=== PATIENT | male | born 1935 | race Caucasian/White ===

== ENCOUNTER 2020-03-30 04:10 | Inpatient (IN) | payer OTHER, MEDICARE, SELFPAY ==
[~2020-03-30] VITALS: Ht 185.4 cm; Wt 88.5 kg
[2020-03-30 04:10] VITALS: BP_SYST 96
[~2020-03-30 04:10] MED LIST: LIP20 PO; TAMS-11 PO
--- NOTE | 2020-03-30 04:10 | NUR ---
ER Dr. ROMERO at bedside examining patient.
--- NOTE | 2020-03-30 04:10 | NUR ---
Placed in room 1 . Placed on stucco laborer, blood pressure machine and pulse oximeter. To gown for exam. Side rails up. Report given to ESVIN DUKES
--- NOTE | 2020-03-30 04:10 | NUR ---
Received patient via EMS ambulance w/ c/o sob and noted to have hr of SVT vs Afib w/ RVR. Denies any cp is slightly pale (skin) in color. MD Fernandez at bedside, iv h.l to be placed to administer medications continue.
--- NOTE | 2020-03-30 04:15 | NUR ---
# 18 gauge angiocath placed to RAC. Use of asceptic technique. Opsite placed over site. Blood return noted. Blood, BLOOD CULTURES, LACTIC for lab drawn from site. Flushed with 10 cc of normal saline. No evidence of infiltration noted. Patient tolerated well.
[2020-03-30] MEDS ORDERED: MIDAZOLAM HCL 5 MG/5 ML VIAL ONE (04:25)
[2020-03-30] MEDS ORDERED: ADENOSINE 6MG/2ML VIAL ONE ×2 (04:25→04:30)
--- NOTE | 2020-03-30 04:25 | NUR ---
1st Adenosine 6mg administered but with no success, patient still remains at SVT vs Afib w/ RVR. Patient is resting comfortably at this time will admin 2nd dose of Adenosine but 12 mg ivp.
--- NOTE | 2020-03-30 04:30 | NUR ---
2nd dose of Adenosine 12mg ivp unsuccessful attempt in converting patient into a regular rhythm. Per Janoo patient to be cardioverted starting at 50 joules. Positioned patient for comfort, continue to monitor level of comfort.
--- NOTE | 2020-03-30 04:31 | NUR ---
patient cardioverted w/ 50 joules, no success in coverting to sinus rhythm or slower rate. Patient tolerated shock. Positioned for comfort and safety w/ bed to low positon sr up.
--- NOTE | 2020-03-30 04:33 | NUR ---
2nd shock performed at 100 joules w/ same results no conversion. continue to monitor.
--- NOTE | 2020-03-30 04:35 | NUR ---
3rd shock performed at 200 joules unsuccessful. Per MD Fernandez will attempt 4th shock after being medicated with versed. continue to monitor level of comfort.
--- NOTE | 2020-03-30 04:45 | NUR ---
# 20 gauge angiocath placed to LEFT HAND. Use of asceptic technique. Opsite placed over site. Blood return noted. Flushed with 10 cc of normal saline. No evidence of infiltration noted. Patient tolerated well.
--- NOTE | 2020-03-30 04:48 | NUR ---
4th shock, sync'd at 100 joules, unsuccessful. Will administered 2nd dose of 12 mg Adenosine.
--- NOTE | 2020-03-30 04:51 | NUR ---
2nd dose of adenosine 12 mg ivp. Will observe for any adverse reaction. continue to monitor.
[2020-03-30] MEDS ORDERED: AMIODARONE HCL 150 MG/3ML VIAL ONE (04:54)
--- NOTE | 2020-03-30 05:05 | NUR ---
amiodarone 300mg IV drip over 10 minutes initiated via RAC per MD order.
[2020-03-30 05:07] LABS: MEAN CORPUSCULAR HEMOGLOBIN 35 pg (27-31); WHITE BLOOD COUNT (AUTO) 3.5 K/uL (4.8-10.8)
--- NOTE | 2020-03-30 05:09 | NUR ---
respiratory at bedside for ABG.
[2020-03-30 05:12] LABS: MEAN CORPUSCULAR HGB CONC 32 % (32-36); MEAN CORPUSCULAR VOLUME 110 fL (79.0-98.0); PLATELET COUNT (AUTO) 108 K/uL (130-430); RED BLOOD CELL COUNT(AUTO) 2.15 MIL/uL (4.2-6.2); RED CELL DISTRIBUTION WIDTH 26.4 % (9.0-15.0)
[2020-03-30 05:18] LABS: ANION GAP 11 (5-15); CALCIUM 7.7 mg/dL (8.4-11.0); CHLORIDE 100 mmol/L (98-107); CREATININE 1.05 mg/dL (0.55-1.30); GLUCOSE 149 mg/dL (70-99); POTASSIUM 4.3 mmol/L (3.5-5.1); SODIUM SERUM 132 mmol/L (136-145); UREA NITROGEN, BLOOD 19 mg/dL (8-21)
[2020-03-30 05:20] LABS: C-REACTIVE PROTEIN QUANT 0.5 mg/dL (0-0.5); HEMATOCRIT 23.7 % (36-54); HEMOGLOBIN 7.6 g/dL (14.0-18.0)
[2020-03-30] MEDS ORDERED: AMIODARONE HCL 450 MG/9 ML VIAL IV ONE ×2 (05:29→22:47)
[2020-03-30] MEDS ORDERED: AMIODARONE HCL 450 MG in D5W 241 ML IV ONE (05:30)
[2020-03-30 05:32] LABS: ALANINE AMINOTRANSFERASE 57 U/L (12-78); ALBUMIN 2.5 g/dL (3.4-4.8); ASPARTATE AMINOTRANSFERASE 94 U/L (10-37); FREE T4 (FREE THYROXINE) 1.1 ng/dl (0.8-1.5); LACTATE DEHYDROGENASE 696 U/L (85-227); TOTAL BILIRUBIN 1.9 mg/dL (0.0-1.0)
[2020-03-30 05:33] LABS: ALCOHOL, BLOOD < 3 mg/dL (<10)
--- NOTE | 2020-03-30 05:37 | NUR ---
RADIOLOGY AT BEDSIDE FOR CHEST XRAY.
[2020-03-30 05:44] LABS: PROTHROMBIN TIME 10.4 SECS (9.5-12.5)
[2020-03-30 05:55] LABS: BAND % (MANUAL) 6 % (0-6); BASOPHILS % (MANUAL) 0 % (0-2); CORRECTED WHITE BLOOD COUNT 2.7 K/uL (4.5-11.0); EOSINOPHILS % (MANUAL) 1 % (0-7); LYMPHOCYTES % (MANUAL) 27 % (20-46); METAMYELOCYTES % 8 % (0-0); MONOCYTES % (MANUAL) 12 % (0-11); MYELOCYTES % 2 % (0-0)
--- NOTE | 2020-03-30 06:03 | NUR ---
DR. ROMERO SPEAKING ON THE PHONE WITH DR. KRAMER.
--- NOTE | 2020-03-30 06:07 | NUR ---
lab at bedside drawing blood.
[2020-03-30] MEDS ORDERED: NACL 0.9% 1,000 ML IV ONE (06:15)
[2020-03-30] MEDS ORDERED: PIPERACILLIN/TAZO 3.375 GM in NS 50 ML IV ONE (06:15)
[2020-03-30] MEDS ORDERED: DILTIAZEM HCL 25 MG/5 ML VIAL IVP ONE (06:15)
[2020-03-30] MEDS ORDERED: VANCOMYCIN HCL 1,000 MG in NS 250 ML IV ONE (06:15)
[2020-03-30] MEDS ORDERED: DILTIAZEM HCL 25 MG/5 ML VIAL ONE (06:16)
[2020-03-30] MEDS ORDERED: DILTIAZEM HCL 125 MG/25 ML VIAL IV ONE (06:16)
--- NOTE | 2020-03-30 06:30 | NUR ---
Patient started on Cardizem gtt at 10ml/hr after being bolused w/ 15mg ivp. patient hr noted to decrease to 113. Positioned patient for comfort and safety w/ bed to low position sr up, iv sites patent and intact. Continue to monitor.
--- NOTE | 2020-03-30 07:06 | NUR ---
Report received from ESVIN Hurtado for continuation of care.
--- NOTE | 2020-03-30 07:09 | NUR ---
Patient is awake, alert, and oriented x4. Patient has no complaints at this time. He is connected to the monitor with a rapid heart rate. Cardizem is running at 10mg/hr to left hand, Amiodorone is running at 33.34 ml/hr to right AC. Patient is on oximizer @ 10LPM.
--- NOTE | 2020-03-30 08:25 | NUR ---
# 16 FR Rizo catheter with use of sterile technique. Immediate return of 250 cc frank urine noted. Bedside drainage bag placed below level of bladder. Urine sample collected and sent to lab. Pt tolerated procedure well.
[2020-03-30] MEDS ORDERED: ALLO300T2 PO (09:18)
[2020-03-30] MEDS ORDERED: ESOM20CA PO (09:18)
--- NOTE | 2020-03-30 09:20 | NUR ---
Medication reconciliation completed with information provided by patient. Any prior medication reconciliation on file was reviewed and corrected.
--- NOTE | 2020-03-30 09:20 | NUR ---
US tech at bedside.
--- NOTE | 2020-03-30 09:25 | NUR ---
Yard Inspector, Dr. Huertas at bedside to see patient.
[2020-03-30] MEDS ORDERED: IOHEXOL 350 mgI/mL, 150 ML INFUS..BTL IV ONE (09:33)
[2020-03-30 09:58] LABS: BILIRUBIN,URINE 1+ (NEGATIVE); CLARITY/URINE CLEAR (CLEAR); COLOR,URINE ORANGE (YELLOW); GLUCOSE,URINE NEGATIVE (NEGATIVE); KETONES,URINE NEGATIVE (NEGATIVE); LEUKOCYTE ESTERASE ,URINE NEGATIVE (NEGATIVE); NITRITE, URINE NEGATIVE (NEGATIVE); PROTEIN URINE 1+ (NEGATIVE)
[2020-03-30 10:14] LABS: BLOOD, URINE TRACE (NEGATIVE)
[2020-03-30 10:15] LABS: BACTERIA,URINE None Seen /HPF (None Seen); CALCIUM OXALATE CRYSTALS,UR None Seen /HPF (None Seen); CALCIUM PHOSPHATE CRYSTALS,UR None Seen /HPF (None Seen); TRICHOMONAS,URINE None Seen /HPF (None Seen); WBC,URINE NONE SEEN /HPF (0-3); YEAST,URINE None Seen /HPF (None Seen)
[2020-03-30 10:32] LABS: BARBITURATE, URINE NEGATIVE (NEG <=200); BENZODIAZEPINE, URINE NEGATIVE (NEG <=150); CANNABINOID, URINE NEGATIVE (NEG <=50); COCAINE, URINE NEGATIVE (NEG <=150); METHAMPHETAMINES SCREEN,URINE NEGATIVE (NEG <=500); OPIATE, URINE POSITIVE (NEG <=100); PHENCYCLIDINE SCREEN,URINE NEGATIVE (NEG <=25); UR TRICYCLIC ANTIDEPRESSANTS NEGATIVE (NEG <=300); URINE AMPHETAMINE NEGATIVE (NEG <=500); URINE METHADONE NEGATIVE (NEG <=200); URINE OXYCODONE SCREEN NEGATIVE (NEG <=100); URINE PROPOXYPHENE SCREEN NEGATIVE (NEG <=300)
[2020-03-30] MEDS ORDERED: PANTOPRAZOLE SODIUM 40 MG TAB PO ONE (10:45)
--- NOTE | 2020-03-30 10:55 | NUR ---
SPOKE WITH PTS AND UPDATED HER ON INFORMATION.
--- NOTE | 2020-03-30 11:30 | NUR ---
Amiodarone titrated to 16.7mL/hr.
--- NOTE | 2020-03-30 12:40 | NUR ---
DR LANG AT BEDSIDE FOR EVALUATION
--- NOTE | 2020-03-30 13:20 | NUR ---
Patient placed in hospital bed.
--- NOTE | 2020-03-30 13:25 | NUR ---
Lunch tray provided.
[2020-03-30] MEDS: IPRATROPIUM/ALBUTEROL SULFATE 3 ML AMPUL.NEB (DUONEB) INH SCH ×2 (15:43→20:05)
--- NOTE | 2020-03-30 17:00 | NUR ---
Patient was provided dinner tray.
[2020-03-30] MEDS: PIPERACILLIN/TAZO 3.375/DEX-IS 50 ML IV SCH ×2 (17:36→23:36)
--- NOTE | 2020-03-30 17:52 | NUR ---
Spoke with Dr. Seals and updated him on patient. He states he will be in to see him.
--- NOTE | 2020-03-30 19:00 | NUR ---
Cardizem drip stopped.
--- NOTE | 2020-03-30 19:10 | NUR ---
850 of frank urine emptied from paiz catheter.
--- NOTE | 2020-03-30 19:15 | NUR ---
All patient needs endorsed to ESVIN Reis for continuation of care.
--- NOTE | 2020-03-30 19:15 | NUR ---
AMIODARONE: Endorsed to ESVIN Reis to turn off Amiodarone at 0530 per protocol.
[2020-03-30 19:50] VITALS: BP_SYST 135
--- NOTE | 2020-03-30 19:50 | NUR ---
ICU ADMIT Patient is alert and oriented. O2 via oxymizer @10L, RR even and unlabored. SR on monitor. IVF infuisng. Belongings at bedside. Rizo catheter in place and draining to gravity. Safety precautions in place, call light within reach. Will continue to monitor.
[2020-03-30 20:00] VITALS: BP_SYST 135
[2020-03-30] MEDS: MICAFUNGIN SODIUM 100 MG in NS 100 ML IV SCH (20:34)
[2020-03-30 21:00] VITALS: BP_SYST 139
--- NOTE | 2020-03-30 21:55 | NUR ---
Dr. Seals at bedside examining patient.
[2020-03-30 22:00] VITALS: BP_SYST 130
[2020-03-30] MEDS ORDERED: AMIODARONE HCL 450 MG in D5W 241 ML IV SCH (22:15)
[2020-03-30 23:00] VITALS: BP_SYST 113
[2020-03-30] MEDS ORDERED: AMIODARONE HCL 200 MG TABLET ONE (23:33)
[2020-03-30] MEDS: AMIODARONE HCL 200 MG TABLET PO SCH (23:36)
[2020-03-31] VITALS (20 sets, daily range): BP systolic 94–145
[2020-03-31] MEDS: IPRATROPIUM/ALBUTEROL SULFATE 3 ML AMPUL.NEB (DUONEB) INH SCH ×5 (01:36→19:00)
--- NOTE | 2020-03-31 03:06 | NUR ---
PAGED FOR CONSULT DARYN MARQUIS REASON FOR CONSULT: PANCYTOPENIA,MDS,LACTIC ACIDOSIS ORDERING PHYSICIAN: DR. LANG DIALED: [phone] SPOKE TO: KENNETH
[2020-03-31] MEDS: PIPERACILLIN/TAZO 3.375/DEX-IS 50 ML IV SCH ×3 (06:48→17:36)
[2020-03-31 07:18] LABS: ALANINE AMINOTRANSFERASE 50 U/L (12-78); ALBUMIN 2.1 g/dL (3.4-4.8); ANION GAP 7 (5-15); ASPARTATE AMINOTRANSFERASE 96 U/L (10-37); CALCIUM 7.2 mg/dL (8.4-11.0); CHLORIDE 99 mmol/L (98-107); CREATININE 0.95 mg/dL (0.55-1.30); GLUCOSE 99 mg/dL (70-99); SODIUM SERUM 130 mmol/L (136-145); TOTAL BILIRUBIN 1.7 mg/dL (0.0-1.0); UREA NITROGEN, BLOOD 18 mg/dL (8-21)
--- NOTE | 2020-03-31 07:20 | NUR ---
Opening Note Received report from endorsing RN. Pt AAOX4, states no pain or distress at this time on oximizer 10L. IV sites intact, patent, no infiltration noted with TKO fluid. Rizo in place draining yellow urine to gravity. No other complaints at this time.
--- NOTE | 2020-03-31 07:25 | NUR ---
ENDORSEMENT Pt care endorsed to ESVIN kelly using nursing sbar.
[2020-03-31 08:07] LABS: C-REACTIVE PROTEIN QUANT 5.6 mg/dL (0-0.5)
[2020-03-31] MEDS: PANTOPRAZOLE SODIUM 40 MG TAB PO SCH (08:33)
[2020-03-31] MEDS: AMIODARONE HCL 200 MG TABLET PO SCH ×2 (08:34→20:41)
[2020-03-31] MEDS: ATORVASTATIN 20 MG TABLET PO SCH (08:34)
--- NOTE | 2020-03-31 08:53 | NUR ---
Nutrition Update [place] scale 17 noted. Pt admitted for uncontrolled superventricular tachycardia/atrial fibrillation Diet: Clear Liquid Diet BMI: 25.7 kg/m2 RD to follow per nutrition care standards.
[2020-03-31 09:04] LABS: MEAN CORPUSCULAR HEMOGLOBIN 35 pg (27-31); MEAN CORPUSCULAR HGB CONC 32 % (32-36); MEAN CORPUSCULAR VOLUME 107 fL (79.0-98.0); PLATELET COUNT (AUTO) 104 K/uL (130-430); RED BLOOD CELL COUNT(AUTO) 2.02 MIL/uL (4.2-6.2); RED CELL DISTRIBUTION WIDTH 25.3 % (9.0-15.0); WHITE BLOOD COUNT (AUTO) 2.5 K/uL (4.8-10.8)
[2020-03-31 09:12] LABS: HEMATOCRIT 21.6 % (36-54)
[2020-03-31] MEDS: NACL 0.9% 1,000 ML IV SCH (10:25)
[2020-03-31 12:11] LABS: CORRECTED WHITE BLOOD COUNT 2.1 K/uL (4.5-11.0)
[2020-03-31 12:12] LABS: BAND % (MANUAL) 7 % (0-6); BASOPHILS % (MANUAL) 0 % (0-2); EOSINOPHILS % (MANUAL) 0 % (0-7); LYMPHOCYTES % (MANUAL) 40 % (20-46); METAMYELOCYTES % 6 % (0-0); MONOCYTES % (MANUAL) 12 % (0-11); MYELOCYTES % 2 % (0-0)
--- NOTE | 2020-03-31 12:45 | NUR ---
BT INITIATION: Verbal and signed consent from patient agreeing to administration of blood witnessed by second RN. Blood has been type and crossmatched. Blood sent from blood bank. Information on unit of blood checked against patient wristband at bedside by two nurses. All information matches. Patient or responsible green party informed of potential complications associated with blood transfusion. Informed of possible transfusion reaction symptoms. Aware of need to notify nurse at once of itching, shortness of breath, flushing, feeling of impending doom, or other symptoms not previously present. Vital signs taken within 5 minutes prior to initiation of transfusion. RN will remain with patient for first 15 minutes of transfusion at which time vital signs will be re-assessed.
[2020-03-31] MEDS: ACETAMINOPHEN 325 MG TABLET PO PRN ×2 (14:38→20:38)
[2020-03-31] MEDS ORDERED: FUROSEMIDE 20 MG/2 ML VIAL IVP ONE (15:45)
--- NOTE | 2020-03-31 15:50 | NUR ---
Dr. Huertas rounding on pt. New orders made for lasix 20 mg IVP.
--- NOTE | 2020-03-31 16:00 | NUR ---
Blood transfusion complete. Vitals stable, afebrile with T99.1. Pt states no pain or distress at this time.
--- NOTE | 2020-03-31 16:05 | NUR ---
RT NOTES Placed pt on HFNC 50L 100% per Dr Huertas's order. Pt was educated and was encouraged to self-prone, sit-up or lay on his side and avoid being on his back. Pt. verbalized understanding, asked how long he should do that, was told as long as he can tolerate it.
--- NOTE | 2020-03-31 16:22 | NUR ---
Dr. Mcclure at bedside with patient. New orders made and carried out.
--- NOTE | 2020-03-31 16:33 | NUR ---
Dietitian Recommendations *Recommend continue Cardiac Diet *Recommend add Ensure Enlive TID to provide additional 1050 kcal, 60 g protein to promote repletion. Please see Nutrition Assessment for details. MINDI RUFF
[2020-03-31] MEDS ORDERED: FUROSEMIDE 20 MG/2 ML VIAL ONE (16:43)
--- NOTE | 2020-03-31 18:00 | NUR ---
Monitoring pt in telemetry status per MD order.
[2020-03-31] MEDS: MICAFUNGIN SODIUM 100 MG in NS 100 ML IV SCH (18:29)
--- NOTE | 2020-03-31 18:56 | NUR ---
Closing Pt in no signs of acute distress. States no pain at this time. Had 100% of dinner tray. IV sites intact, patent, no infiltration noted with IVF infusing. Will endorse plan of care to RN.
--- NOTE | 2020-03-31 19:25 | NUR ---
Opening note Received report from Shirley MCALLISTER. Pt with telemetry order, on 6L/NC, NAD.
--- NOTE | 2020-03-31 20:00 | NUR ---
RN Rounds Pt with temperature 101.9. NAD. pt medicated. Will continue to monitor
--- NOTE | 2020-03-31 21:00 | NUR ---
MD Rounds Dr. Seals at bedside- updated on patient. No new orders.
--- NOTE | 2020-03-31 22:40 | NUR ---
RN Rounds pt temp rechecked now 102.8. cooling measures initiated with ice pack. will continue to monitor.
[2020-04-01] VITALS: BP_SYST 136
[2020-04-01] MEDS: PIPERACILLIN/TAZO 3.375/DEX-IS 50 ML IV SCH ×4 (00:12→17:39)
[2020-04-01] MEDS: IPRATROPIUM/ALBUTEROL SULFATE 3 ML AMPUL.NEB (DUONEB) INH SCH ×4 (01:12→19:00)
[2020-04-01 04:00] VITALS: BP_SYST 136
[2020-04-01 07:08] LABS: BASOPHILS % (AUTO) 1.1 % (0.0-2.0); EOSINOPHILS % (AUTO) 0.1 % (0.0-4.0); HEMATOCRIT 23.4 % (36-54); HEMOGLOBIN 7.9 g/dL (14.0-18.0); LYMPHOCYTES # (AUTO) 0.9 K/uL (1.0-5.5); MEAN CORPUSCULAR HEMOGLOBIN 35 pg (27-31); MEAN CORPUSCULAR HGB CONC 34 % (32-36); MEAN CORPUSCULAR VOLUME 103 fL (79.0-98.0); MONOCYTES # (AUTO) 0.4 K/uL (0.0-1.0); MONOCYTES % (AUTO) 13.9 % (1.7-9.3); NEUTROPHILS # (AUTO) 1.4 K/uL (1.8-7.7); NEUTROPHILS % (AUTO) 51.9 % (40.0-70.0); PLATELET COUNT (AUTO) 90 K/uL (130-430); RED BLOOD CELL COUNT(AUTO) 2.28 MIL/uL (4.2-6.2); RED CELL DISTRIBUTION WIDTH 24.6 % (9.0-15.0); RETICULOCYTE COUNT 13.2 % (0.5-1.5); WHITE BLOOD COUNT (AUTO) 2.7 K/uL (4.8-10.8)
--- NOTE | 2020-04-01 07:15 | NUR ---
Closing note Report given to Renate MCALLISTER
[2020-04-01 07:34] LABS: ALANINE AMINOTRANSFERASE 66 U/L (12-78); ALBUMIN 1.9 g/dL (3.4-4.8); ANION GAP 9 (5-15); ASPARTATE AMINOTRANSFERASE 109 U/L (10-37); CHLORIDE 97 mmol/L (98-107); CREATININE 1.18 mg/dL (0.55-1.30); GLUCOSE 109 mg/dL (70-99); LACTATE DEHYDROGENASE 644 U/L (85-227); POTASSIUM 4.1 mmol/L (3.5-5.1); SODIUM SERUM 129 mmol/L (136-145); TOTAL BILIRUBIN 1.7 mg/dL (0.0-1.0); UREA NITROGEN, BLOOD 20 mg/dL (8-21)
--- NOTE | 2020-04-01 07:58 | NUR ---
Initial notes Awake, having breathing treatment at this time. denies ay pain or discomfort. no acute distress noted. Informed that he will be transferred out to telemetry unit. pt verbalize understanding.
[2020-04-01 08:02] LABS: C-REACTIVE PROTEIN QUANT 6.2 mg/dL (0-0.5); CALCIUM 7.1 mg/dL (8.4-11.0)
[2020-04-01 08:05] VITALS: BP_SYST 130
--- NOTE | 2020-04-01 08:25 | NUR ---
Transfer to telemetry, with all belongigs, no acute distress noted, Set patient up to breakfast.
--- NOTE | 2020-04-01 08:30 | NUR ---
NURSE NOTE OBTAINED VS, PATIENT IN BED RESPIRATIONS EVEN, NON LABORED, NON PRODUCTIVE COUGH PRESENT, ON NASAL CANULA 7L, BED IN LOW AND LOCKED POSITION, CALL LIGHT WITHIN REACH.
--- NOTE | 2020-04-01 09:45 | NUR ---
NURSE NOTE PROVIDED PATIENT WITH BED SMILEY
--- NOTE | 2020-04-01 10:00 | NUR ---
NURSE NOTE REMOVED PATIENT FROM BED SMILEY, PROVIDED PATRICA CARE, PATIENT TOLERATED WELL NO COMPLAINTS OF PAIN
[2020-04-01] MEDS: NACL 0.9% 1,000 ML IV SCH (10:17)
[2020-04-01] MEDS: ATORVASTATIN 20 MG TABLET PO SCH (10:17)
[2020-04-01] MEDS: AMIODARONE HCL 200 MG TABLET PO SCH ×2 (10:17→20:18)
[2020-04-01] MEDS: PANTOPRAZOLE SODIUM 40 MG TAB PO SCH (10:17)
[2020-04-01 12:00] VITALS: BP_SYST 125
--- NOTE | 2020-04-01 12:00 | NUR ---
nuse note PROVIDED PATIENT WITH LUNCH, BED IN LOW AND LOCKED POSITION, CALL LIGHT WITHIN REACH, BED ALARM ON
--- NOTE | 2020-04-01 14:00 | NUR ---
NURSE NOTE PATIENT IN BED, RESPIRATIONS EVEN, NON LABORED, EYES CLOSED, BED IN LOW AND LOCKED POSITION, CALL LIGHT WITHIN REACH, ZAVALA DRAINING BY GRAVITY.
[2020-04-01 16:00] VITALS: BP_SYST 140
--- NOTE | 2020-04-01 16:00 | NUR ---
NURSE NOTE PATIENT IN BED, WATCHING TV, BED IN LOW AND LOCKED POSITION, CALL LIGHT WITHIN REACH, BED ALARM ON
[2020-04-01] MEDS: MICAFUNGIN SODIUM 100 MG in NS 100 ML IV SCH (17:39)
[2020-04-01] MEDS: ACETAMINOPHEN 325 MG TABLET PO PRN (17:42)
--- NOTE | 2020-04-01 17:45 | NUR ---
MD ROUNDS DR LANG BEDSIDE EXAMINING PATIENT
--- NOTE | 2020-04-01 17:45 | NUR ---
NURSE NOTE PATIENT COMPLAINING OF PAIN TO BACK, REPOSITIONED PATIENT ADMINISTERED MEDICATIONS, PROVIDED PATIENT WITH DINNER.
--- NOTE | 2020-04-01 18:45 | NUR ---
NURSE NOTE REMOVED ZAVALA, PER ORDER, PATIENT DENIES ANY DISCOMFORT, BED IN LOW AND LOCKED POSITION, CALL LIGHT WITHIN REACH
--- NOTE | 2020-04-01 19:15 | NUR ---
NURSE NOTE PATIENT RUNNING SVT, COMPLAINING OF SOB. INCREASED O2 TO 5L NASAL CANULA, RAISED HEAD OF BED, VS TAKEN, PAGED DR CHE, RT BEDSIDE. HEART RATE DECREASED, AND PATIENT STATED THAT IT WAS EASIER TO BREATH. BED IN LOW AND LOCKED POSITION, CALL LIGHT WITHIN REACH, BED ALARM ON
--- NOTE | 2020-04-01 19:25 | NUR ---
CLOSING NOTE PROVIDED SBAR TO NIGHT RN, PATIENT IN BED, RESPIRATIONS EVEN, NON LABORED, BED IN LOW AND LOCKED POSITION, BED ALARM ON, PATIENT DENIES ANY PAIN OR DISCOMFORT, ENDORSED CARE TO NIGHT RN
--- NOTE | 2020-04-01 19:55 | NUR ---
Initial note: Received report from leticia RN. Patient is awake in bed, no acute distress, even and unlabored breathing on 3L NC. IV fluids infusing well to right AC IV site. IV saline lock noted to left wrist. D/C'd IV site to left hand, patient was complaining of pain. Call light with patient. Safety, fall, COVID iso precautions in place. Will continue with plan of care.
[2020-04-01 20:17] VITALS: BP_SYST 105
[2020-04-02] MEDS: PIPERACILLIN/TAZO 3.375/DEX-IS 50 ML IV SCH ×5 (00:58→23:41)
[2020-04-02 01:01] VITALS: BP_SYST 117
[2020-04-02] MEDS: IPRATROPIUM/ALBUTEROL SULFATE 3 ML AMPUL.NEB (DUONEB) INH SCH ×4 (01:20→20:54)
--- NOTE | 2020-04-02 02:24 | NUR ---
Sleeping: Patient is asleep, no acute distress, even and unlabored breathing on 3L NC. IV fluids infusing well. Call light with patient. Will continue monitoring.
[2020-04-02] MEDS: NACL 0.9% 1,000 ML IV SCH (05:25)
--- NOTE | 2020-04-02 06:19 | NUR ---
Closing note: Patient is awake, no acute distress. No complaints of chest pain or shortness of breath throughout shift. Even, unlabored breathing on 3L NC. IV fluids infusing as ordered, no infiltration. All needs met. Safety, fall, COVID iso precautions observed. Will endorse care to dayshift RN.
--- NOTE | 2020-04-02 07:25 | NUR ---
OPENING NOTE RECIEVED SBAR FROM NIGHT RN, PATIENT IN BED, RESPIRATIONS EVEN, NON LABORED, BED IN LOW AND LOCKED POSITION, CALL LIGHT WITHIN REACH
[2020-04-02 07:33] LABS: BASOPHILS % (AUTO) 0.8 % (0.0-2.0); EOSINOPHILS % (AUTO) 0.3 % (0.0-4.0); HEMATOCRIT 24.1 % (36-54); LYMPHOCYTES # (AUTO) 0.6 K/uL (1.0-5.5); LYMPHOCYTES % (AUTO) 30.8 % (20.5-51.5); MEAN CORPUSCULAR HEMOGLOBIN 33 pg (27-31); MEAN CORPUSCULAR HGB CONC 33 % (32-36); MEAN CORPUSCULAR VOLUME 101 fL (79.0-98.0); MONOCYTES # (AUTO) 0.3 K/uL (0.0-1.0); MONOCYTES % (AUTO) 13.9 % (1.7-9.3); NEUTROPHILS # (AUTO) 1.1 K/uL (1.8-7.7); NEUTROPHILS % (AUTO) 54.2 % (40.0-70.0); PLATELET COUNT (AUTO) 89 K/uL (130-430); RED BLOOD CELL COUNT(AUTO) 2.38 MIL/uL (4.2-6.2); RED CELL DISTRIBUTION WIDTH 23.6 % (9.0-15.0)
[2020-04-02 07:52] LABS: ALANINE AMINOTRANSFERASE 65 U/L (12-78); ALBUMIN 1.9 g/dL (3.4-4.8); ANION GAP 7 (5-15); ASPARTATE AMINOTRANSFERASE 111 U/L (10-37); CALCIUM 7.1 mg/dL (8.4-11.0); CHLORIDE 100 mmol/L (98-107); GLUCOSE 90 mg/dL (70-99); POTASSIUM 4.2 mmol/L (3.5-5.1); SODIUM SERUM 131 mmol/L (136-145); UREA NITROGEN, BLOOD 21 mg/dL (8-21)
[2020-04-02 08:00] VITALS: BP_SYST 141
--- NOTE | 2020-04-02 08:00 | NUR ---
NURSE NOTE OBTAINED VS, PROVIDED BREAKFAST, PATIENT IN BED, RESPIRATIONS EVEN, ON 5L MASK, IVF'S RUNNING ORDERED. PATIENT DENIES ANY PAIN OR DISCOMFORT, BED IN LOW AND LOCKED POSITION, CALL LIGHT WITHIN REACH, BED ALARM ON
[2020-04-02 08:34] LABS: WHITE BLOOD COUNT (AUTO) 1.9 K/uL (4.8-10.8)
[2020-04-02] MEDS: AMIODARONE HCL 200 MG TABLET PO SCH ×2 (08:39→20:48)
[2020-04-02] MEDS: PANTOPRAZOLE SODIUM 40 MG TAB PO SCH (08:40)
[2020-04-02] MEDS: ATORVASTATIN 20 MG TABLET PO SCH (08:40)
--- NOTE | 2020-04-02 10:00 | NUR ---
NURSE NOTE PATIENT IN BED, RESPIRATIONS EVEN, BED IN LOW AND LOCKED POSITION BED ALARM ON,
[2020-04-02 10:14] VITALS: BP_SYST 141
--- NOTE | 2020-04-02 10:50 | NUR ---
CRITICAL LAB INFORMED DR LANG AND DR OCHOA OF PATIENTS WBC 1.9 AND HEMOGLOBIN 8.0, NO NEW ORDERS
--- NOTE | 2020-04-02 11:00 | NUR ---
NURSE NOTE PATIENT IN BED EYES CLOSED BED IN LOW AND LOCKED POSITION, CALL LIGHT WITHIN REACH, BED ALARM ON
[2020-04-02 12:00] VITALS: BP_SYST 137
--- NOTE | 2020-04-02 12:00 | NUR ---
nurse note patient in bed, complaining of headache, obtained vs, provided lunch , administered medication. bed in low and locked position, call light within reach, bed alarm on,
[2020-04-02] MEDS: ACETAMINOPHEN 325 MG TABLET PO PRN (12:11)
--- NOTE | 2020-04-02 12:45 | NUR ---
md order Informed Dr Mcclure of patients complaint of headache, new order received for Motrin, if Motrin does not help call back for new order
[2020-04-02] MEDS ORDERED: IBUPROFEN 400 MG TABLET PO ONE (13:00)
--- NOTE | 2020-04-02 15:00 | NUR ---
NURSE NOTE PATIENT IN BED, RESPIRATIONS EVEN, NON LABORED, O2 5L NASAL CANULA, IVF'S RUNNING ORDERED. BED IN LOW AND LOCKED POSITION CALL LIGHT WITHIN REACH.
[2020-04-02 16:00] VITALS: BP_SYST 116
--- NOTE | 2020-04-02 17:21 | NUR ---
MD ROUNDS Dr. Mcclure bedside examining patient
--- NOTE | 2020-04-02 18:20 | NUR ---
nurse note transferred patient to room 112B, administered medication, provided dinner, patient in bed, respirations even, non labored, bed in low and locked position, call light within reach
--- NOTE | 2020-04-02 19:15 | NUR ---
Nurse note Provided Sbar to night Rn, patient in bed, respirations even, non labored, bed in low and locked position call light within reach, bed alarm on, Endorsed care to night RN
--- NOTE | 2020-04-02 19:30 | NUR ---
CHANGE OF SHIFT; pt. watching tv when received, no complaints manifested. call light within reach. no resp. distress.
[2020-04-02 20:20] VITALS: BP_SYST 125
--- NOTE | 2020-04-02 20:40 | NUR ---
NOTES: due medication given. cardiac pattern on sinus rhythm. call light at bedside. IV lock on rt. antecubital with IVF infusing. another IV lock on left wrist. noted both arms bruising armen. right side. urinal at bedside. call light at bedside.
--- NOTE | 2020-04-02 22:12 | NUR ---
NOTES; pt. sleeping when made rounds.
--- NOTE | 2020-04-03 00:15 | NUR ---
NOTES: Due IV antibiotic given, pt. awake at his time, tv on.
[2020-04-03 00:18] VITALS: BP_SYST 131
[2020-04-03] MEDS: IPRATROPIUM/ALBUTEROL SULFATE 3 ML AMPUL.NEB (DUONEB) INH SCH ×4 (02:56→20:14)
--- NOTE | 2020-04-03 03:00 | NUR ---
NOTES: RT gave pt. breathing treatment. condition observed.
[2020-04-03] MEDS: ACETAMINOPHEN 325 MG TABLET PO PRN (04:57)
--- NOTE | 2020-04-03 05:00 | NUR ---
NOTES: pt. already awake,called c/o headache, wants Motrin, no current order, Tylenol po given instead. pt. voided per urinal.
[2020-04-03] MEDS: PIPERACILLIN/TAZO 3.375/DEX-IS 50 ML IV SCH ×2 (05:01→11:33)
--- NOTE | 2020-04-03 06:30 | NUR ---
CLOSING NOTES; PT. AWAKE, RESTING, WATCHING TV. NO RESP. DISTRESS. O2 CONTINUOUS. FOR FURTHER CARE AND ASSIST. WILL ENDORSE TO CHECK O2 SAT ON ROOM AIR AT REST AND AFTER AMBULATION.
[2020-04-03 06:45] LABS: BASOPHILS % (AUTO) 0.6 % (0.0-2.0); EOSINOPHILS % (AUTO) 0.1 % (0.0-4.0); HEMATOCRIT 22.1 % (36-54); HEMOGLOBIN 7.4 g/dL (14.0-18.0); LYMPHOCYTES # (AUTO) 0.5 K/uL (1.0-5.5); LYMPHOCYTES % (AUTO) 26.4 % (20.5-51.5); MEAN CORPUSCULAR HEMOGLOBIN 34 pg (27-31); MEAN CORPUSCULAR HGB CONC 33 % (32-36); MEAN CORPUSCULAR VOLUME 101 fL (79.0-98.0); MONOCYTES # (AUTO) 0.3 K/uL (0.0-1.0); MONOCYTES % (AUTO) 16.4 % (1.7-9.3); NEUTROPHILS # (AUTO) 1.1 K/uL (1.8-7.7); PLATELET COUNT (AUTO) 96 K/uL (130-430); RED BLOOD CELL COUNT(AUTO) 2.19 MIL/uL (4.2-6.2); RED CELL DISTRIBUTION WIDTH 23.7 % (9.0-15.0)
[2020-04-03 07:00] LABS: ANION GAP 9 (5-15); CALCIUM 7.3 mg/dL (8.4-11.0); CHLORIDE 99 mmol/L (98-107); CREATININE 1.14 mg/dL (0.55-1.30); GLUCOSE 101 mg/dL (70-99); SODIUM SERUM 130 mmol/L (136-145); UREA NITROGEN, BLOOD 25 mg/dL (8-21)
--- NOTE | 2020-04-03 07:22 | NUR ---
Opening Note received bedside SBAR report from shift supervisor RN, patient resting in bed, respirations even and unlabored on 2L nasal cannula, no acute distress noted, educated patient on use of call light and asked to call for assistance, patient verbalized understanding, call light in reach, bed in low and locked position, bed alarm on, room close to nurses station.
[2020-04-03] MEDS: ATORVASTATIN 20 MG TABLET PO SCH (08:03)
[2020-04-03] MEDS: PANTOPRAZOLE SODIUM 40 MG TAB PO SCH (08:03)
[2020-04-03] MEDS: AMIODARONE HCL 200 MG TABLET PO SCH ×2 (08:04→20:41)
[2020-04-03] MEDS: NACL 0.9% 1,000 ML IV SCH (08:10)
[2020-04-03 08:11] VITALS: BP_SYST 150
--- NOTE | 2020-04-03 09:15 | NUR ---
Rec'd dcp orders for home 02, FWW, BSC--I s/w nurse Minal-re: need 02 sat on RA prior to ambulation, during ambulation on RA then with 02 at 2L NC applied, or ABG on RA and check with Dr. Mcclure-need more specific orders for home 02: 02 at 2L/NC continuous portable gas Q 24hrs and 02 concentrator continuous 2L/NC Q 24hrs and check if pt needs home health/PT--pt ambulates 60ft w/fww--will f/u for dc planning orders. EDNA RN
--- NOTE | 2020-04-03 09:20 | NUR ---
Bedside commode patient used bedside commode, patient able to complete toileting independently, BM x1, patient resting in bed, respirations even and unlabored on 2L nasal cannula.
--- NOTE | 2020-04-03 10:58 | NUR ---
Oxygen Saturation patients O2 Sat at rest with 2L nasal cannula 97%, O2 Sat at rest on room air 96%, assisted patient to ambulate to room door and back with walker, O2 Sat on room air while ambulating 86%, assisted patient back to bed, patient resting in bed, respirations even and unlabored on 2L nasal cannula, patient denies any shortness of breath while at rest.
--- NOTE | 2020-04-03 11:16 | NUR ---
Case mgt: I faxed available 02 and DME orders to [facility] fax#[phone]--ph#Radha [phone]-direct#[phone]--nurse Minal aware I need more detailed [address] Mcclure with physical signature and home health orders-- RN
--- NOTE | 2020-04-03 11:18 | NUR ---
Spoke with Physician spoke with Dr. Mcclure, informed her of patient complaint of headache, informed her that patient states that tylenol does not work and is requesting motrin, new medication orders received, verified with read back, informed her of patients oxygen saturations 97% on 2L nasal cannula at rest, 96% on room air at rest, 86% on room air while ambulating, per Dr. Mcclure patient will require home oxygen, informed her that per protective services case worker Alejandra a physical signature is needed for Dr. Mcclure, per Dr. Mcclure she will be in this afternoon.
[2020-04-03] MEDS: IBUPROFEN 400 MG TABLET PO PRN ×2 (11:32→20:40)
[2020-04-03 12:31] VITALS: BP_SYST 113
--- NOTE | 2020-04-03 13:05 | NUR ---
RN Rounds patient resting in bed, respirations even and unlabored on 2L nasal cannula, no acute distress noted, patient reports headache is controlled.
[2020-04-03 13:11] LABS: NEUTROPHILS % (AUTO) 56.5 % (40.0-70.0)
--- NOTE | 2020-04-03 13:25 | NUR ---
Case mgt: I received call from Casandra at [facility] company-I faxed updated home 02 and FWW orders to her at new fax#[phone]-per Casandra , she needs MD order electronically or physically signed by Dr. Mcclure. I s/w Dr. Mcclure and she will round soon and sign order then. I took a copy of the home 02 and FWW order to ESVIN Peraza at nurses' station and explained to have Dr. Mcclure sign,time,date order and then fax to [facility] at [phone] if I am not on site any longer. EDNA MCALLISTER
[2020-04-03 14:20] VITALS: BP_SYST 108
--- NOTE | 2020-04-03 14:20 | NUR ---
Heart Rate per gate technician patients HR is 150's, RN to bedside immediately, patient resting in bed, patient states that he just got up to use the bedside commode and did not have his oxygen on, oxygen reapplied, nasal cannula at 2L, patients HR now in 90's, patient denies any chest pain or shortness of breath, no acute distress noted, vital signs taken, see vital signs assessment flowsheet.
[2020-04-03] MEDS: VANCOMYCIN HCL 750 MG in NS 250 ML IV SCH (14:36)
--- NOTE | 2020-04-03 14:50 | NUR ---
Physical Therapy patient ambulating with physical therapy and walker.
--- NOTE | 2020-04-03 16:21 | NUR ---
Physician Rounds Dr. Mcclure at bedside examining patient, Dr. Mcclure signed orders for home oxygen and front wheel walker, signed order taken to business case analyst Alejandra. Addendum: 04/03/20 at 1627 by Minal Hunt RN informed Dr. Mcclure of episode of elevated HR in 150's when patient was using the commode, informed her that after patient rested in bed for several minutes HR was in the 90's.
--- NOTE | 2020-04-03 16:28 | NUR ---
Case mgt: I faxed signed orders for home 02 and FWW to [facility] fax#[phone]--fax completed, I called Casandra at [facility] [phone] and she will look for order in system-I explained pt will discharge home if 02 and DME is arranged and I asked her to call nursing station with update on DME orders/delivery--
--- NOTE | 2020-04-03 16:45 | NUR ---
Discharge Planning received call from Casandra at [facility], per Casandra the orders for DME must be entered by Dr. Mcclure in her chart notes, informed Dr. Mcclure, per Dr. Mcclure she will enter orders.
[2020-04-03] MEDS: MICAFUNGIN SODIUM 100 MG in NS 100 ML IV SCH ×2 (17:22→17:24)
--- NOTE | 2020-04-03 17:58 | NUR ---
RN Rounds patient sitting up in bed eating dinner, tolerating well, patient denies any nausea or vomiting, patient and patients Loretta Dee are aware that once the home O2 has been delivered and portable O2 tank has been delivered to the hospital, patient may be discharged home.
[2020-04-03 18:05] VITALS: BP_SYST 113
[2020-04-03] MEDS ORDERED: AMI200 PO (18:26)
[2020-04-03] MEDS ORDERED: LEVO750T45 PO (18:27)
[2020-04-03] MEDS ORDERED: ALBMDI INH (18:27)
[2020-04-03] MEDS ORDERED: DIF100 PO (18:28)
--- NOTE | 2020-04-03 18:54 | NUR ---
Discharge Planning called [facility] regarding home oxygen, spoke with Hortencia, she will call back to nurses station with an estimated time of delivery for the oxygen.
--- NOTE | 2020-04-03 19:14 | NUR ---
Closing Note bedside SBAR report given to receiving RN, patient resting in bed, respirations even and unlabored on 2L nasal cannula, no acute distress noted, educated patient on use of call light and asked to call for assistance, patient verbalized understanding, call light in reach, bed in low and locked position, bed alarm on, care endorsed to mini shifter RN.
--- NOTE | 2020-04-03 19:30 | NUR ---
OPENING NOTE RECIEVED SBAR FROM DAY SHIFT RN, PATIENT IN BED, RESPIRATIONS EVEN, NON LABORED. POC DISCUSSED WITH PT, PT VERBALIZED UNDERSTANDING. BED IN LOW AND LOCKED POSITION, CALL LIGHT WITHIN REACH. WILL MONITOR.
[2020-04-03 20:00] VITALS: BP_SYST 120
--- NOTE | 2020-04-03 20:00 | NUR ---
RN NOTE: SPOKE TO [facility] [employer] WHO STATED DME (OXYGEN AND FWW) WILL BE DELIVERED TOMORROW.
[2020-04-03] MEDS: CEFEPIME 2 GM in D5W 100 ML IV SCH (20:41)
[2020-04-03] MEDS ORDERED: MAG-AL HYDROX/SIMETH 30 ML UDC ONE (22:05)
[2020-04-03] MEDS ORDERED: MAG-AL HYDROX/SIMETH 30 ML UDC PO PRN (22:15)
--- NOTE | 2020-04-04 00:30 | NUR ---
NURSE NOTE OBTAINED VS, PATIENT IN BED RESPIRATIONS EVEN, NON LABORED, ON NASAL CANULA 2 L TOLERATING WELL, BED IN LOW AND LOCKED POSITION, CALL LIGHT WITHIN REACH.
[2020-04-04] MEDS: VANCOMYCIN HCL 750 MG in NS 250 ML IV SCH ×2 (01:58→14:31)
[2020-04-04 02:36] VITALS: BP_SYST 116
--- NOTE | 2020-04-04 03:50 | NUR ---
RN ROUNDS: PATIENT IN BED RESPIRATIONS EVEN, NON LABORED, ON NASAL CANULA 2 L TOLERATING WELL, BED IN LOW AND LOCKED POSITION, CALL LIGHT WITHIN REACH.
--- NOTE | 2020-04-04 06:51 | NUR ---
CLOSING NOTE PT RESTING IN BED, NO S/S OF ACUTE DISTRESS, BREATHING IS EVEN AND UNLABORED TO O2 VIA NC AT 2L. ALL NEEDS MET. SAFETY MAINTAINED. WILL ENDORSE CARE TO DAY SHIFT RN.
[2020-04-04] MEDS: IPRATROPIUM/ALBUTEROL SULFATE 3 ML AMPUL.NEB (DUONEB) INH SCH ×2 (07:00→14:46)
--- NOTE | 2020-04-04 07:15 | NUR ---
Opening Note received bedside SBAR report from manager night RN, patient resting in bed, respirations even and unlabored on 2L nasal cannula, no acute distress noted, educated patient on use of call light and asked to call for assistance, patient verbalized understanding, call light in reach, bed in low and locked position, bed alarm on.
[2020-04-04] MEDS: CEFEPIME 2 GM in D5W 100 ML IV SCH (08:05)
[2020-04-04] MEDS: AMIODARONE HCL 200 MG TABLET PO SCH (08:06)
[2020-04-04] MEDS: IBUPROFEN 400 MG TABLET PO PRN (08:06)
[2020-04-04] MEDS: ATORVASTATIN 20 MG TABLET PO SCH (08:06)
[2020-04-04] MEDS: PANTOPRAZOLE SODIUM 40 MG TAB PO SCH (08:06)
[2020-04-04] MEDS: NACL 0.9% 1,000 ML IV SCH (08:07)
[2020-04-04 09:04] VITALS: BP_SYST 140
--- NOTE | 2020-04-04 09:40 | NUR ---
Bedside commode patient used bedside commode, patient completes toileting independently, BMx1, voided x1, tolerated well, patient resting in bed.
--- NOTE | 2020-04-04 11:21 | NUR ---
RN Rounds patient resting in bed, respirations even and unlabored on 2L nasal cannula, patient reports pain is controlled, no acute distress noted, spoke with patients Loretta, per Loretta she has not yet received a call from [facility] regarding home oxygen and FWW, spoke with psychotherapist social worker Kiana, she is following up with [facility] to arrange for DME.
--- NOTE | 2020-04-04 11:27 | NUR ---
[employer]: follow up on patients discharge DIRECTOR ONCOLOGY spoke with extension service specialist in charge, Chona who asked DIRECTOR ONCOLOGY to follow up as patient was suppose to discharge yesterday with Oxygen and a FWW at home. DIRECTOR ONCOLOGY called Nia at [facility], fax [phone] ph [phone] who stated the home oxygen is justified in the notes however the FWW in the prescription is not justified in the ' (Kami) notes. DIRECTOR ONCOLOGY spoke to Rn. Fontaine who stated Dr. Mcclure did include this info in her notes. DIRECTOR ONCOLOGY faxed over a copy of Drs. notes with the documentation including justification for the FWW. DIRECTOR ONCOLOGY called Colette back and she is waiting for the fax. Once she received it, she will call DIRECTOR ONCOLOGY back with the ETA for the home oxygen and home FWW for today. DIRECTOR ONCOLOGY updated Neville Cox per leaving a message with [email or web address]. DIRECTOR ONCOLOGY is awaiting a call back from Nia. Addendum: 04/04/20 at 1416 by Molly Anthony DIRECTOR ONCOLOGY [employer] notes DIRECTOR ONCOLOGY spoke to Neville Fontaine who will call patients to let her know both the oxygen and FWW will be delivered from [facility] between 2-5 today. Once they deliver, is to call Minal so Minal can prep. patient for discharge and his will pick patient up. DIRECTOR ONCOLOGY thanked Minal.
--- NOTE | 2020-04-04 12:59 | NUR ---
Bedside commode patient used bedside commode, BM x1, voided x1, patient toilets independently, tolerated well, patient resting in bed.
--- NOTE | 2020-04-04 13:07 | NUR ---
Spoke with patients spoke with patients Loretta Dee, informed her that per social and political studies professor Kiana Freeman [facility] will deliver home oxygen and FWW between 2-4pm, per patients she will call the nurses station once the DME has been delivered so that patient can be prepared for discharge.
--- NOTE | 2020-04-04 13:33 | NUR ---
IV catheter patient reports bleeding at IV catheter site to right AC, IV catheter removed, catheter intact, no bleeding, IV catheter to left wrist still patent and intact, patient resting in bed.
[2020-04-04 13:55] VITALS: BP_SYST 129
[2020-04-04 14:00] VITALS: BP_SYST 129
--- NOTE | 2020-04-04 15:21 | NUR ---
[facility] delivered portable oxygen tank and front wheel walker to hospital, portable oxygen and FWW at patients bedside, educated patient on how to turn on portable oxygen tank, how to read the oxygen level dial and how to adjust to 2L nasal cannula, patient returned demonstration, awaiting delivery of home oxygen to patients Loretta, after delivery of home O2 patients will pick patient up for discharge home.
[2020-04-04 15:30] VITALS: BP_SYST 127
--- NOTE | 2020-04-04 16:03 | NUR ---
Spoke with patients spoke with patients Loretta Dee, per Loretta the home oxygen has been delivered to patients home, she is on her way with her son to machine pecan picker patient for discharge, patient is dressed and ready for discharge home.
--- NOTE | 2020-04-04 16:25 | NUR ---
Discharge provided patient and patients with discharge packet and instructions, written prescription provided, patient and patients verbalized understanding, IV catheter removed, catheter intact, no bleeding, no acute distress noted, respirations even and unlabored on 2L nasal cannula, front wheel walker and portable oxygen tank discharged with patient, all belongings discharged with patient, patient taken to parking lot via wheelchair on 2L nasal cannula, patient accompanied by his and son for discharge home.
--- NOTE | 2020-04-13 12:24 | NUR ---
Discharge Follow Up Phone Call Phoned patient, , and spoke with patient's . Patient is not doing well and currently is an inpatient at [facility].
== END 2020-04-04 16:20 | disposition home or self-care (01) | DRG 871 ==
LOC: SED 04:10 → SIC 07:59 → STU 04-01 08:30
PROVIDERS: ADMIT Internal Medicine; ATTEND Internal Medicine
PROC: 5A2204Z Restoration of Cardiac Rhythm, Single (ICD-10-PCS; 2020-03-30)
PROC: 30233N1 Transfusion of Nonautologous Red Blood Cells into Peripheral Vein, Percutaneous Approach (ICD-10-PCS; principal; 2020-03-31)
DX: A41.9 Sepsis, unspecified organism (principal); E43 Unspecified severe protein-calorie malnutrition; J18.9 Pneumonia, unspecified organism; J96.01 Acute respiratory failure with hypoxia; I47.1 Supraventricular tachycardia; E87.2 Acidosis; D61.818 Other pancytopenia; D50.9 Iron deficiency anemia, unspecified; I49.1 Atrial premature depolarization; D46.9 Myelodysplastic syndrome, unspecified; E78.5 Hyperlipidemia, unspecified; I48.91 Unspecified atrial fibrillation; R16.2 Hepatomegaly with splenomegaly, not elsewhere classified; K44.9 Diaphragmatic hernia without obstruction or gangrene; K76.0 Fatty (change of) liver, not elsewhere classified; Z20.828 Contact with and (suspected) exposure to other viral communicable diseases; Z85.46 Personal history of malignant neoplasm of prostate; Z85.51 Personal history of malignant neoplasm of bladder; Z87.11 Personal history of peptic ulcer disease; Z92.3 Personal history of irradiation; Z68.25 Body mass index [BMI] 25.0-25.9, adult
CPT/HCPCS: 36415; 36600; 71045; 71275; 76376; 76700-TC; 80048; 80053; 80307; 81000-TC; 82550-TC; 82728; 82803-TC; 83010; 83605; 83615-TC; 83735-TC; 83880; 84439; 84443-TC; 84484; 85007; 85025; 85027; 85044-TC; 85379; 85610-TC; 85730-TC; 86140; 86635; 86880-TC; 86886; 86900; 86901; 86920; 87040-TC; 87081; 87086; 87305; 93005; 93306; 93970; 94640; 94760; 96361; 96365; 96366; 96368; 96375; 97116-GP; 97530-GP; 99291; G0482; J0153; J0282; J0692; J1940; J2248; J2250; J2543; J3490; J7030; J7040; J7050; J7060; P9021; Q9967; U0003